=== PATIENT | female | born 1970 | race Caucasian/White ===

== ENCOUNTER → 2019-04-22 | Emergency (ER) | payer SELFPAY ==
[~2019-04-22] VITALS: Ht 174 cm; Wt 93.0 kg
[~2019-04-22] MED LIST: CEPH500T PO; PIPERACILLIN/TAZOBACTAM 4.5 GM in IV NORMAL SALINE 100ML 100 ML IV ONE; SULF1TAB24 PO; fentaNYL PF VIAL 100 MCG/2 ML VIAL IVP ONE
[2019-04-22 21:12] VITALS: BP 109/64
[2019-04-22] MEDS: IV NORMAL SALINE 1000ML BAG 1,000 ML IV SCH ×2 (21:53→23:48)
[2019-04-22 22:07] LABS: BASO # 0.1 x10^3/uL (0.0-0.2); BASO % 1 % (0-3); EOS # 0.2 x10^3/uL (0.0-0.7); EOS % 5 % (0-3); HEMATOCRIT 33.1 % (36.0-47.0); HEMOGLOBIN 10.7 g/dL (12.0-15.5); LYMPH # 1.4 x10^3/uL (1.0-4.8); LYMPH % 28 % (24-48); MEAN CORPUSCULAR HEMOGLOBIN 28 pg (25-35); MEAN CORPUSCULAR HGB CONC 33 g/dL (31-37); MEAN CORPUSCULAR VOLUME 87 fL (79-100); MONO # 0.4 x10^3/uL (0.0-1.1); MONO % 7 % (0-9); NEUT # 2.9 x10^3/uL (1.8-7.7); NEUT % 59 % (31-73); PLATELET COUNT 338 x10^3/uL (140-400); RED BLOOD COUNT 3.79 x10^6/uL (3.50-5.40); RED CELL DISTRIBUTION WIDTH 17.1 % (11.5-14.5)
[2019-04-22 22:16] LABS: CALCIUM 8.9 mg/dL (8.5-10.1); CREATININE 0.8 mg/dL (0.6-1.0); GFR 77.2; POTASSIUM 3.6 mmol/L (3.5-5.1)
[2019-04-22 22:19] LABS: PROTHROMBIN TIME PATIENT 12.1 SEC (11.7-14.0)
[2019-04-22 22:22] LABS: ALBUMIN/GLOBULIN RATIO 0.6 (1.0-1.7); TOTAL BILIRUBIN 0.1 mg/dL (0.2-1.0); TOTAL PROTEIN 7.9 g/dL (6.4-8.2)
--- NOTE | 2019-04-22 22:44 | RAD ---
Right Lower Extremity Venous Doppler Ultrasound History: Cellulitis Comparison: None Procedure: Color flow, duplex, spectral analysis and 2D images are obtained with and without compression in the area of the common femoral vein, superficial femoral vein - femoral vein junction, main femoral vein (superficial femoral vein) and popliteal vein. Veins of the proximal calf are also imaged. Findings: There is normal duplex flow, color flow and compressibility of all visualized vein segments. No evidence of deep venous thrombus is present. There are normal-appearing lymph nodes in the right groin. There is lower extremity soft tissue edema. There is a complex fluid collection in the lateral proximal leg that measures 1.5 x 0.9 x 0.3 cm. Impression: 1. No evidence of DVT. 2. Right lower extremity edema. 3. Small complex fluid collection. This could be a hematoma or developing abscess. Electronically signed by: Dayday Freeman III, MD (04/22/2019 10:41 PM) [facility]
--- NOTE | 2019-04-22 22:46 | PHYS DOC ---
Past Medical History Past Medical History: Other Additional Past Medical Histor: cellulitis; MRSA (PEG THRASHER APRN) Past Surgical History: Tubal ligation, Other Additional Past Surgical Histo: right forearm (PEG THRASHER APRN) Alcohol Use: None Drug Use: Methamphetamine Social History Narrative: IV and smoking Meth (PEG THRASHER APRN) Attending Signature I have participated in the care of this patient and I have reviewed and agree with all pertinent clinical information above including history, exam, and recommendations. (SERG SALDANA MD) Adult General Chief Complaint Chief Complaint: SKIN PROBLEM HPI HPI Patient is a 48 year old female with history of Lymphedema presenting to the ED today complaining of right lower extremity swelling and redness that began 3 days ago. Patient denies any trauma. Reports previous history of cellulitis, reports use of IV drugs but denies using the right lower extremity for injection. Patient reports she received cephalexin from somebody and took a couple doses yesterday. Patient denies any fever. (PEG THRASHER APRN) Review of Systems Review of Systems Constitutional: Denies fever or chills [] Eyes: Denies change in visual acuity, redness, or eye pain [] HENT: Denies nasal congestion or sore throat [] Respiratory: Denies cough or shortness of breath [] Cardiovascular: No additional information not addressed in HPI [] GI: Denies abdominal pain, nausea, vomiting, bloody stools or diarrhea [] : Denies dysuria or hematuria [] Musculoskeletal: Denies back pain or joint pain [] Integument: Reports right lower extremity redness and swelling Neurologic: Denies headache, focal weakness or sensory changes [] All other systems were reviewed and found to be within normal limits, except as documented in this note. (PEG THRASHER APRN) Current Medications Current Medications Current Medications Medications (Trade) Dose Ordered Sig/Christin Start Time Stop Time Status Last Admin Dose Admin Fentanyl Citrate (Fentanyl 2ml Vial) 50 mcg 1X ONCE 04/22/19 22:00 04/22/19 22:01 DC 04/22/19 21:55 50 MCG Levofloxacin/ Dextrose 150 ml @ 100 mls/hr 1X ONCE 04/22/19 22:00 04/22/19 23:29 DC 04/22/19 21:59 100 MLS/HR Piperacillin Sod/ Tazobactam Sod 4.5 gm/Sodium Chloride 100 ml @ 200 mls/hr 1X ONCE 04/22/19 22:00 04/22/19 22:29 DC 04/22/19 23:39 200 MLS/HR Sodium Chloride 1,000 ml @ 1,000 mls/hr Q1H 04/22/19 22:00 04/22/19 23:56 DC 04/22/19 23:48 1,000 MLS/HR (SERG SALDANA MD) Allergies Allergies Allergies Coded Allergies Type Severity Reaction Last Updated Verified codeine Allergy Intermediate 04/22/19 Yes (SERG SALDANA MD) Physical Exam Physical Exam Constitutional: Well developed, well nourished, no acute distress, non-toxic appearance. [] HENT: Normocephalic, atraumatic, bilateral external ears normal, oropharynx moist, no oral exudates, nose normal. [] Eyes: PERRLA, EOMI, conjunctiva normal, no discharge. [] Neck: Normal range of motion, no tenderness, supple, no stridor. [] Cardiovascular:Heart rate regular rhythm, no murmur [] Lungs & Thorax: Bilateral breath sounds clear to auscultation [] Abdomen: Bowel sounds normal, soft, no tenderness, no masses, no pulsatile masses. [] Skin: Right lower extremity with +2 edema, there is a scabbed up region approximately 2 x 2 centimeters on the proximal martinez with moderate cellulitis from this region. The martinez feels warm right and tender to touch. +2 right pedal pulse. Cap refill less than 2 seconds the right lower extremity. Back: No tenderness, no CVA tenderness. [] Extremities: No tenderness, no cyanosis, no clubbing, ROM intact Neurologic: Alert and oriented X 3, normal motor function, normal sensory function, no focal deficits noted. [] Psychologic: Affect normal, judgement normal, mood normal. [] (PEG THRASHER APRN) Current Patient Data Vital Signs Vital Signs Date Time Temp Pulse Resp B/P (MAP) Pulse Ox O2 Delivery O2 Flow Rate FiO2 04/22/19 21:55 16 97 Room Air 04/22/19 21:12 74 109/64 (79) 04/22/19 20:45 98.6 98.6 (SERG SALDANA MD) Lab Values Laboratory Tests Test 04/22/19 21:49 White Blood Count 5.0 x10^3/uL (4.0-11.0) Red Blood Count 3.79 x10^6/uL (3.50-5.40) Hemoglobin 10.7 g/dL (12.0-15.5) L Hematocrit 33.1 % (36.0-47.0) L Mean Corpuscular Volume 87 fL (79-100) Mean Corpuscular Hemoglobin 28 pg (25-35) Mean Corpuscular Hemoglobin Concent 33 g/dL (31-37) Red Cell Distribution Width 17.1 % (11.5-14.5) H Platelet Count 338 x10^3/uL (140-400) Neutrophils (%) (Auto) 59 % (31-73) Lymphocytes (%) (Auto) 28 % (24-48) Monocytes (%) (Auto) 7 % (0-9) Eosinophils (%) (Auto) 5 % (0-3) H Basophils (%) (Auto) 1 % (0-3) Neutrophils # (Auto) 2.9 x10^3/uL (1.8-7.7) Lymphocytes # (Auto) 1.4 x10^3/uL (1.0-4.8) Monocytes # (Auto) 0.4 x10^3/uL (0.0-1.1) Eosinophils # (Auto) 0.2 x10^3/uL (0.0-0.7) Basophils # (Auto) 0.1 x10^3/uL (0.0-0.2) Prothrombin Time 12.1 SEC (11.7-14.0) Prothrombin Time INR 0.9 (0.8-1.1) Activated Partial Thromboplast Time 31 SEC (24-38) Sodium Level 139 mmol/L (136-145) Potassium Level 3.6 mmol/L (3.5-5.1) Chloride Level 105 mmol/L (98-107) Carbon Dioxide Level 28 mmol/L (21-32) Anion Gap 6 (6-14) Blood Urea Nitrogen 18 mg/dL (7-20) Creatinine 0.8 mg/dL (0.6-1.0) Estimated GFR (Cockcroft-Gault) 77.2 BUN/Creatinine Ratio 23 (6-20) H Glucose Level 99 mg/dL (70-99) Lactic Acid Level 1.8 mmol/L (0.4-2.0) Calcium Level 8.9 mg/dL (8.5-10.1) Total Bilirubin 0.1 mg/dL (0.2-1.0) L Aspartate Amino Transferase (AST) 15 U/L (15-37) Alanine Aminotransferase (ALT) 16 U/L (14-59) Alkaline Phosphatase 52 U/L (46-116) Creatine Kinase 108 U/L (26-192) Creatine Kinase MB (Mass) 1.7 ng/mL (0.0-3.6) Creatine Kinase MB Relative Index 1.6 % (0-4) Total Protein 7.9 g/dL (6.4-8.2) Albumin 3.0 g/dL (3.4-5.0) L Albumin/Globulin Ratio 0.6 (1.0-1.7) L Laboratory Tests 04/22/19 21:49 Laboratory Tests 04/22/19 21:49 (SERG SALDANA MD) EKG EKG [] (PEG THRASHER APRN) Radiology/Procedures Radiology/Procedures [] (PEG THRASHER APRN) Course & Med Decision Making Course & Med Decision Making Pertinent Labs and Imaging studies reviewed. (See chart for details) This is a 48-year-old female patient presented to the ED today with abscess and cellulitis of right lower extremity that she noted 3 days ago, she took cephalexin from a friend yesterday only. She is refusing to be admitted by all means. She is an IV drug user Venous Doppler of the right lower extremity is negative for DVT. CBC with normal WBC. Patient was given Levaquin IV and Zosyn in the ED Tetanus is up-to-date I continued to encourage patient to be admitted but she has refused. She was discharged with cephalexin and Bactrim. Encouraged follow-up with the PCP in 1-2 weeks. Discouraged from doing IV drugs or any other drugs (PEG THRASHER APRN) Dragon Disclaimer Dragon Disclaimer This electronic medical record was generated, in whole or in part, using a voice recognition dictation system. (PEG THRASHER APRN) Departure Departure Impression: Primary Impression: Cellulitis of right lower extremity Additional Impression: Abscess of right lower extremity Disposition: 01 HOME, SELF-CARE Condition: STABLE Referrals: NO PCP (PCP) follow up with your doctor in 1-2 weeks Patient Instructions: Abscess, Cellulitis, [id number] Additional Instructions: You were evaluated in the emergency room with an abscess and cellulitis of the right lower extremity. Please take the prescribed antibiotics as ordered until completed. Please consider not doing any drugs. Scripts Sulfamethoxazole/Trimethoprim (BACTRIM DS TABLET) 1 Each Tablet 1 TAB PO BID for 10 Days, #20 TAB 0 Refills Prov: PEG THRASHER APRN 04/22/19 Cephalexin (CEPHALEXIN) 500 Mg Tablet 1 TAB PO TID, #30 TAB Prov: PEG THRASHER APRN 04/22/19 Problem Qualifiers PEG THRASHER APRN Apr 22, 2019 22:46 SERG SALDANA MD Apr 23, 2019 19:22
== END ==
LOC: ER 20:08
DX: L03.115 Cellulitis of right lower limb (principal); L02.415 Cutaneous abscess of right lower limb; I89.0 Lymphedema, not elsewhere classified; F13.90 Sedative, hypnotic, or anxiolytic use, unspecified, uncomplicated; Z98.51 Tubal ligation status; Z98.890 Other specified postprocedural states; Z88.5 Allergy status to narcotic agent; Z79.899 Other long term (current) drug therapy
CPT/HCPCS: 36415; 80053; 82553; 83605; 85025; 85610; 85730; 87040; 93971; 96365; 96366; 96367; 96375; 99285; J1956; J2543; J3010; J7030